=== PATIENT | female | born 2000 | race Caucasian/White ===

== ENCOUNTER 2020-12-31 14:50 | Inpatient (IN) | payer BC, SELFPAY ==
[2020-12-31] VITALS (27 sets, daily range): BP systolic 114–139; BP diastolic 66–85; PULSE 75–123; RESP 16; TEMP 36.6–36.8; O2SAT 77–100; BMI 24.0
[2020-12-31 15:47] LABS: Basophils Percent Auto 0.2 % (0.2-1.2); Eosinophils Absolute Auto 0.1 K/mm3 (0-0.3); Eosinophils Percent Auto 0.6 % (0-4.4); Hematocrit 34.9 % (37.0-47.0); Hemoglobin 11.5 g/dL (12.0-15.0); Immature Granulocyte Absolute 0.09 K/mm3 (0.00-0.031); Immature Granulocyte Percent A 1.1 % (0-0.5); Lymphocytes Absolute Auto 1.77 K/mm3 (0.9-3.2); Lymphocytes Percent Auto 21.5 % (18.3-44.2); Mean Corpuscular Hemoglobin 28.4 pg (26-34); Mean Corpuscular Volume 86.2 fl (80-100); Monocytes Absolute Auto 0.7 K/mm3 (0.1-0.6); Monocytes Percent Auto 8.6 % (2.6-8.5); Neutrophils Absolute Auto 5.6 K/mm3 (1.3-6.7); Platelet Count Result 240 k/mm3 (150-375); Red Blood Count 4.05 M/mm3 (4.2-5.4); Red Cell Distribution Width 13.6 % (11.5-14.5); White Blood Count 8.2 K/mm3 (4.5-10.0)
--- NOTE | 2020-12-31 15:55 | PM.IMHP ---
H&P: HPI History of Present Illness Date/Time: 12/31/20 15:55 20-year-old 1 para 0 whose last menstrual period was unsure with EDC is 01/02/2021 based on 9 week ultrasound presents with spontaneous rupture membranes apparently 24 hours ago. She is positive for ROM Plus today and her cervix is 5-6 cm. She does have type 1 mild von Willebrand's disease and will require DDAVP nasal spray just prior to delivery. She is negative for group B strep Chief Complaint: term in labor Review of Systems Review of Systems: All systems reviewed & are unremarkable except as noted in HPI and below PMFSH Family History Family History Father Hypertension Grandparent Hypertension Mother Hypotension Chronic cough Shortness of breath Social History Social History Substance use: never Spiritual care concerns: No Meds Home Medications and Allergies Home Medications Medication Instructions Recorded Confirmed Type cholecalciferol (vitamin D3) 25 mcg PO DAILY 12/18/20 12/18/20 History [Vitamin D3] prenat.vits,luly,atr-bpeh-rpbes 1 tablet PO DAILY 12/18/20 12/18/20 History [ #2] Allergies Allergy/AdvReac Type Severity Reaction Status Date / Time amoxicillin Allergy Intermediate Swelling Verified 12/18/20 13:36 of the Eye famotidine [From Pepcid] Allergy Intermediate Hives Verified 12/18/20 13:36 gabapentin Allergy Intermediate Confusion Verified 12/18/20 13:36 Exam Const: General: no acute distress Eyes: General: appearance normal, both eyes and all related structures Neck: Neck: supple and no JVD Thyroid: thyroid normal Resp: Effort & Inspection: normal respiratory effort Auscultation: clear to auscultation bilaterally Cardio: Rate: regular rate Rhythm: regular rhythm GI: Inspection: non-distended GI Palp: Yes Soft to palpation, No Tenderness to palpation present (GI) and No Guarding due to palpation present (GI) Auscultation: normal bowel sounds : External Female Exam: normal external appearance Speculum Exam - Vagina: normal appearance of the vagina Speculum Exam - Cervix: normal appearance of the cervix ( cervix 5/100/0. Clear fluid seen. FHTs reassuring) Skin: General skin exam: no rashes or lesions noted Extrem: General: normal to inspection and no edema Psych: Mental Status: mental status grossly normal Affect: normal affect H&P: Results Labs Labs: Short CBC 12/31/20 Range/Units 15:34 WBC 8.2 (4.5-10.0) K/mm3 Hgb 11.5 L (12.0-15.0) g/dL Hct 34.9 L (37.0-47.0) % Plt Count 240 (150-375) k/mm3 Assessment and Plan Additional Plan impression: Term in active labor. Mild type 1 von Willebrand's disease. Plan: Spontaneous vaginal delivery is expected. DDAVP will be administered
[2020-12-31 15:57] LABS: INR 0.9; Prothrombin Time 11.8 Seconds (11.1-14.7)
[2020-12-31 15:58] LABS: Partial Thromboplastin Time 26.4 SECONDS (22.3-36.8)
--- NOTE | 2020-12-31 15:58 | LDADM ---
This patient, Aliza Pizano, was admitted to Labor/Delivery/Recovery 103 on 12/31/20 at 14:50. Plans for labor, pain management and were discussed with patient. Patient/family oriented to hospital policies and general routines including ID bracelet, bed and alarms, visiting hours, pain management, procedures, bathroom and other care routines, personal items, smoking policy, room service/diet and guest tray routines, security routines, and visiting hours. Patient/Family are encouraged to report perceived risks to care and to ask questions if they do not understand what they are told or what they should do. See OBIX for further documentation.
[2020-12-31 16:09] LABS: Fibrinogen 222 mg/dl (215-510)
[2020-12-31] MEDS: OXYTOCIN 30 UNITS/NS 500 ML 30 UNITS/500 ML BAG 6 UNITS IV CONT (16:22)
[2020-12-31] MEDS: LACTATED RINGERS 1,000 ML 125 ML IV CONT (16:48)
--- NOTE | 2020-12-31 18:04 | PM.OBPNLAB ---
Pain Control Date/time seen: 12/31/20 18:04 Pain control: tolerating well Pelvic Exam Dilation (cm): 8 Effacement (%): 100 station: +1 Amniotic membrane status: Leaking Contractions Monitor mode: External Contraction pattern: Regular Contraction intensity: Strong/Firm Status status: Category l
--- NOTE | 2020-12-31 19:28 | P.PCNOB_ITS ---
OB - Delivery Note Procedure Delivery date: 12/31/20 Intrapartal events: None Induction method: none Delivery augmentation: pitocin Delivery monitor: external FHT Route of delivery: Episiotomy description: None Laceration Description: Perineal - 2nd Degree Delivery repair: vicryl Specimen: No Quantitative Blood Loss (ml): 58 Anesthesia type: Local Disposition: floor [place] Baby Date of : 12/31/20 Time of : 19:11 Weeks of gestation at delivery: 39 gender: Male presentation: vertex position: Left Occiput Anterior Placenta delivery description: Spontaneous cord vessel description: 3 Vessels score one minute: 9 score five minutes: 9
[2020-12-31] MEDS: OXYTOCIN 30 UNITS/NS 500 ML 30 UNITS/500 ML BAG 125 UNITS IV CONT (19:47)
[2020-12-31] MEDS: IBUPROFEN 600 MG TABLET PO (20:17)
[2020-12-31] MEDS: WITCH HAZEL 40 PADS 1 PAD TOPICAL (20:18)
[2020-12-31] MEDS: BENZOCAINE 20% AER SPR (*SP) 56 GM CAN 1 SPRAY TOPICAL (20:18)
[2021-01-01 05:09] LABS: Hematocrit 26.4 % (37.0-47.0); Hemoglobin 8.8 g/dL (12.0-15.0)
--- NOTE | 2021-01-01 07:15 | PM.OBPNVD ---
OB - PN: Subj Subjective Date/time seen: 01/01/21 07:15 Patient comments: no complaints and pain well controlled baby status: doing well and nursing well OB - PN: Obj Data Labs CBC & Chem 7: 01/01/21 04:13 Labs: Laboratory Results - last 24 hr 12/31/20 12/31/20 12/31/20 15:33 15:34 15:34 WBC 8.2 RBC 4.05 L Hgb 11.5 L Hct 34.9 L MCV 86.2 MCH 28.4 MCHC 33.0 RDW 13.6 Plt Count 240 MPV 11.0 H Immature Gran % (Auto) 1.1 H Neut % (Auto) 68.0 Lymph % (Auto) 21.5 [place] % (Auto) 8.6 H Eos % (Auto) 0.6 Baso % (Auto) 0.2 Lymph # (Auto) 1.77 [place] # (Auto) 0.7 H Eos # (Auto) 0.1 Baso # (Auto) 0.0 Abs Immat Gran (auto) 0.09 H Absolute Neuts (auto) 5.6 Absolute Nucleated RBC 0.0 Nucleated RBC % 0.0 PT 11.8 INR 0.9 APTT 26.4 Fibrinogen 222 Blood Type O Positive Antibody Screen Negative 01/01/21 04:13 WBC RBC Hgb 8.8 L Hct 26.4 L MCV MCH MCHC RDW Plt Count MPV Immature Gran % (Auto) Neut % (Auto) Lymph % (Auto) [place] % (Auto) Eos % (Auto) Baso % (Auto) Lymph # (Auto) [place] # (Auto) Eos # (Auto) Baso # (Auto) Abs Immat Gran (auto) Absolute Neuts (auto) Absolute Nucleated RBC Nucleated RBC % PT INR APTT Fibrinogen Blood Type Antibody Screen OB - PN A/P Plan day: 1 Plan: routine care Time Spent With Patient Time: Total time spent is greater than 50% in coordination of care (as documented) at patient's floor/unit and/or counseling patient: Time with patient: less than 15 minutes Review of Systems Review of Systems: All systems reviewed & are unremarkable except as noted in HPI and below Exam Const: General: no acute distress Eyes: General: appearance normal, both eyes and all related structures Neck: Neck: supple and no JVD Thyroid: thyroid normal Resp: Effort & Inspection: normal respiratory effort Auscultation: clear to auscultation bilaterally Cardio: Rate: regular rate Rhythm: regular rhythm GI: Inspection: non-distended GI Palp: Yes Soft to palpation, No Tenderness to palpation present (GI) and No Guarding due to palpation present (GI) Auscultation: normal bowel sounds : General: Yes bladder normal to palpation External Female Exam: normal external appearance Speculum Exam - Vagina: normal vaginal discharge and No vaginal bleeding Speculum Exam - Cervix: nontender Bimanual exam- vagina & uterus: bladder normal to palpation and No Cervical tenderness present OB/external & speculum: No vaginal bleeding Skin: General skin exam: no rashes or lesions noted Extrem: General: normal to inspection and no edema Psych: Mental Status: mental status grossly normal Affect: normal affect
[2021-01-01] MEDS: POLYSACCHARIDE IRON COMPLEX 150 MG CAPSULE PO ×2 (07:59→20:25)
[2021-01-01] MEDS: IBUPROFEN 600 MG TABLET PO (07:59)
[2021-01-01] MEDS: DOCUSATE SODIUM 100 MG CAPSULE PO ×2 (07:59→20:25)
[2021-01-01 08:05] LABS: Rapid Plasma Reagin Non-Reactive (NonReactive)
[2021-01-01 08:15] VITALS: BP 110/64; PULSE 82; RESP 18; TEMP 37.6; O2SAT 98
[2021-01-01] MEDS: MULTIVIT/MIN/PREN/FOL AC/IRON TABLET 1 TAB PO (08:51)
[2021-01-01 12:03] VITALS: BP 99/54; PULSE 74; RESP 16; TEMP 36.9; O2SAT 99
--- NOTE | 2021-01-01 13:40 | PC.NURSE ---
Mother called out for assist with feeding, reporting will not latch to right breast. Right nipple has less profile than left. Mother states infant is sleepy and not staying on for more than a few minutes before having to relatch. Infant does not appear to have a tight frenulum and flange both lips, keeps tongue rolled up. Skin is intact on both nipples, redness and no bruising noted. Reviewed infant feeding cues, frequencies, duration of feedings, feeding elimination flow sheet, and signs of adequate intake. Demonstrated stimulation techniques to wake infant for feeding. Assisted with to breast. Reviewed positioning/alignment in cross cradle, holding breast in ?U? hold and guided asymmetrical latch on. Discussed rational for each. Infant unable to latch correctly. keeps tongue up and nipple is under tongue. Infant will make weak attempts with suckling and is on and off freq within first minutes of feeding. Offered and explained the nipple shield. Discussed nipple shield precautions and possible complications. Instructions given on application and cleaning of shield. Patient able to return demonstration on proper application of shield. Discussed the need to initiate pumping if infant continues to nurse with the shield. Patient verbalizes understanding. With shield in place nursed eagerly for bursts followed with long pausing. Suggested mother stimulate while feeding to increase stimulate, increase intake and to assist with maintaining deep latch. Infant responded to stimulation with increased bursts of nursing. Reviewed signs of a correct latch, effective nursing and suck swallow ratio. Infant would slip to shallow latch, mother reports tenderness. Demonstrated how to adjust latch more deeply while feeding. Mother reports she can feel change in latch and has no tenderness. Nipple care reviewed of lanolin after feedings, warm compresses as needed. Advised mother to continue to stimulate during entire feeding to keep infant awake and nursing. Reviewed the difference of effective vs ineffective nursing, advised infant has short bursts of nursing. If is not suckling milk is not transferring. Observed 30 minutes of feeding approximately 10-015 minutes of sucking noted, with LC stimulating and keeping infant awake. Report to primary RN Instructed mother to call out for RN assistance if she is unable to latch for feeding or she has discomfort with nursing.
[2021-01-01 17:10] VITALS: BP 106/61; PULSE 77; RESP 16; TEMP 36.7
[2021-01-01 20:25] VITALS: BP 113/75; PULSE 116; RESP 16; TEMP 36.7
--- NOTE | 2021-01-02 06:57 | PM.DS ---
DS: Admitting Diagnosis Admitting Diagnosis Term in active labor with von Willebrand's disease DS: Summary Hospital Course Hospital Course: the patient was admitted in active labor. She underwent spontaneous vaginal delivery which was due to her van Willebrand's disease, she was given dose of DDAVP. Her hospital course was unremarkable. She remained afebrile. She was up, voiding without difficulty, ambulating, breast-feeding, and generally without complaints Time Spent with Patient Time attestation: Total time spent providing and/or coordinating discharge services: Exam Const: General: no acute distress Eyes: General: appearance normal, both eyes and all related structures Neck: Neck: supple and no JVD Thyroid: thyroid normal Resp: Effort & Inspection: normal respiratory effort Auscultation: clear to auscultation bilaterally Cardio: Rate: regular rate Rhythm: regular rhythm GI: Inspection: non-distended GI Palp: Yes Soft to palpation, No Tenderness to palpation present (GI) and No Guarding due to palpation present (GI) Auscultation: normal bowel sounds : General: Yes bladder normal to palpation External Female Exam: normal external appearance Speculum Exam - Vagina: normal vaginal discharge and No vaginal bleeding Speculum Exam - Cervix: nontender Bimanual exam- vagina & uterus: bladder normal to palpation and No Cervical tenderness present OB/external & speculum: No vaginal bleeding Skin: General skin exam: no rashes or lesions noted Extrem: General: normal to inspection and no edema Psych: Mental Status: mental status grossly normal Affect: normal affect DS: Data Data Completed and Pending Labs on day of discharge: Labs from last 24 hours 12/31/20 15:33 RPR Non-reactive Discharge Plan Discharge Attending physician on discharge: Juan Carlos Cedeno Discharging Clinician: Juan Carlos Cedeno Patient Disposition: Home, Self-Care Activity: may shower, no straining and pelvic rest Diet: heart healthy Wound Care Instructions: follow printed instructions Patient Instructions: Antibiotic Form Stand Alone Forms: General Discharge Information Follow-up/Referrals: Juan Carlos Cedeno MD [Physician] - Discharge Medications: Continued #2 Tablet 1 tablet PO DAILY RF: 0 cholecalciferol (vitamin D3) [Vitamin D3] 25 mcg (1,000 unit) Tablet 25 mcg PO DAILY RF: 0 Date of admission: 12/31/20 14:50 Primary Care Provider: Ole,Juan Carlos P. Admitting Provider: Juan Carlos Cedeno Attending physician on admission: Juan Carlos Cedeno Condition: Stable
--- NOTE | 2021-01-02 06:59 | PM.OBPNVD ---
OB - PN: Subj Subjective Date/time seen: 01/02/21 06:59 Patient comments: no complaints and pain well controlled baby status: doing well and nursing well OB - PN: Obj Data Labs CBC & Chem 7: 01/01/21 04:13 Labs: Laboratory Results - last 24 hr 12/31/20 15:33 RPR Non-reactive OB - PN A/P Time Spent With Patient Time: Total time spent is greater than 50% in coordination of care (as documented) at patient's floor/unit and/or counseling patient: Review of Systems Review of Systems: All systems reviewed & are unremarkable except as noted in HPI and below Exam Const: General: no acute distress Eyes: General: appearance normal, both eyes and all related structures Neck: Neck: supple and no JVD Thyroid: thyroid normal Resp: Effort & Inspection: normal respiratory effort Auscultation: clear to auscultation bilaterally Cardio: Rate: regular rate Rhythm: regular rhythm GI: Inspection: non-distended GI Palp: Yes Soft to palpation, No Tenderness to palpation present (GI) and No Guarding due to palpation present (GI) Auscultation: normal bowel sounds : General: Yes bladder normal to palpation External Female Exam: normal external appearance Speculum Exam - Vagina: normal vaginal discharge and No vaginal bleeding Speculum Exam - Cervix: nontender Bimanual exam- vagina & uterus: bladder normal to palpation and No Cervical tenderness present OB/external & speculum: No vaginal bleeding Skin: General skin exam: no rashes or lesions noted Extrem: General: normal to inspection and no edema Psych: Mental Status: mental status grossly normal Affect: normal affect
[2021-01-02 07:45] VITALS: BP 113/75; PULSE 64; RESP 16; TEMP 36.6; O2SAT 99
[2021-01-02] MEDS: MULTIVIT/MIN/PREN/FOL AC/IRON TABLET 1 TAB PO (11:07)
[2021-01-02] MEDS: DOCUSATE SODIUM 100 MG CAPSULE PO (11:07)
[2021-01-02] MEDS: POLYSACCHARIDE IRON COMPLEX 150 MG CAPSULE PO (11:07)
[2021-01-02] MEDS: TETANUS,DIPHTHERIA,AC PERTUSSIS ADULT (0.5 ML) BOOSTRIX IM (11:08)
--- NOTE | 2021-01-02 12:05 | PC.NURSE ---
Attempt to consult pt in am, mother is needing to rest. Requested mother call out at 1115 feeding, mother independently fed reporting pain and difficulties with waking and keeping infant awake during feeding. Suggested parents wait for discharge after next feeding at 1415.
--- NOTE | 2021-01-02 14:15 | PC.NURSE ---
Mother called out for assist with feeding. continues to keep tongue up and not drop. Both nipples are red and bruising noted. Mother states she has not been using nipple shield, she does not like it and feels she has more discomfort with than without. Reviewed infant feeding cues, frequencies, duration of feedings, feeding elimination flow sheet, and signs of adequate intake. Demonstrated stimulation techniques to wake for feeding. Assisted with to breast. Reviewed positioning/alignment in cross cradle, holding breast in ?U? hold and guided asymmetrical latch on. Discussed rational for each. 10 minutes of attempt, is unable to latch correctly, he does not drop tongue to allow correct latch. Worked with to drop tongue for latch, mother continues to report discomfort. would suckle with dimpling noted. Attempted with nipple shield, mother was able to get shield on top of tongue. Mother continues to report tenderness, less than without shield. nursed eagerly, with steady draws for 1-2 minutes then would pause and fall asleep. Parents report this is typical of making eager attempts for a few minutes then falling asleep. Suggested mother stimulate while feeding to keep awake and nursing. Infant does not respond to stimulation, he continues to sleep. Small amounts of formula to entice . responded with increased nursing. Reviewed signs of a correct latch, effective nursing and suck swallow ratio. would slip to shallow latch, mother reports tenderness. Demonstrated how to adjust latch more deeply while feeding. Mother reports she can feel change in latch and has less tenderness. Nipple care reviewed of lanolin after feedings, warm compresses as needed. Feeding plan will be to put to breast for up to 15 minutes, infant will then be supplemented 20 mls EBM/formula, increasing as infant desires. Mother will pump for 15 minutes. Discussed as infant increases supplementation he may not want to feed for 4 hours, mother will continue to pump after feeding attempts increasing pumping to 20 minutes if pumping every 4 hours. Mother is feeding as required and waking to feed if needed, stressed to wake for 4 hours if supplementing. is currently meeting outcomes for weight, output, jaundice and feeding frequencies. Mother states she feels confident to with feeding plan of supplementing and pumping after each feeding/attempt at home. Reviewed transition to breast milk, signs of adequate intake, and engorgement/relief. Instructed to call ICP if intake/output less than required. Reviewed regular medications mother is taking. Information provided per Gloria. Reviewed community resources on the [facility] website and in the Mom/Baby guide. Information on outpatient services provided. Mother has no further questions at this time.
[2021-01-05 12:10] VITALS: BP 104/68; PULSE 82; RESP 20; TEMP 36.8; O2SAT 100
== END 2021-01-02 16:08 | disposition home or self-care (01) | DRG 806 ==
LOC: ANHLDR 15:18 → ANHOB2 22:09
PROVIDERS: Admitting Provider Obstetrics & Gynecology; PCP Family Medicine; Visit Provider Obstetrics & Gynecology
DX: O99.12 Other diseases of the blood and blood-forming organs and certain disorders involving the immune mechanism complicating childbirth (principal); D68.0 Von Willebrand disease; Z37.0 Single live birth; Z3A.39 39 weeks gestation of pregnancy; O70.1 Second degree perineal laceration during delivery
CPT/HCPCS: 36415; 84112; 85014; 85018; 85025; 85384; 85610; 85730; 86592; 86850; 86900; 86901; 90715; A9270; J0690; J2590; J2795; J7120

== ENCOUNTER 2021-01-11 15:19 | Outpatient (RCR) | payer BC, SELFPAY ==
--- NOTE | 2021-01-11 16:00 | PC.NURSE ---
[id number] OUT 1100 HISTORY: Pt. delivered at [facility] at 39 weeks. had no complications after delivery. Mother had complications after delivery of a large blood loss. Infant is now 12 days old. Infant appears to be well cared for. Infant has been seen by ICP as scheduled. Infant last seen by ICP on 01/10/2021. Mother reports: Currently at 9 wets per day and 6 yellow seedy stools per day. Mother went home on a feeding plan due to ineffective nursing she was advised to supplement after all feedings. Mother was attempting to breast, infant would not maintain latch. Mother was given and instructed on use of a nipple shield to assist with latching while in the hospital. Mother did not like the nipple shield and discontinued use. was to be supplemented EBM/formula and then pump to replace stimulation. Mother was not supplementing amount advised in feeding plan. At follow up had not gained any weight and not maintaining effective latching. Mother was again assisted with nipple shield to assist with deep latch. Mother reports she has been putting infant to breast each feeding with the shield for up to 40 minutes, she will then pump up to 3 oz per session. Mother does not give EBM after each feeding, reporting is satisfied after . and had lost more weight by 1st ICP appointment, and returned for 2nd weight check and had gained 1 oz in a week. Mother denies discomfort with feeding and reports is satisfied after feeding. Pt's mother is with her for appointment, stating she will supplement if she feels infant needs it. Mother reports she feels is sleepy at times and is fussy and difficult to latch. Mother wishes: Resolve feeding issues and to gain weight. OBSERVATION: weight: 7#11 Discharge weight: Last Weight: 7#3 at 1 week and 7#4 at second ICP apt. Pre feeding weight: 3469 Post feeding weight: 3520 Tongue is able to move freely past gum ridge, both lips flange easily. Mother has everted nipples with skin intact no redness, blisters, scabbing or abrasions noted. Observed mother putting to breast using nipple shield. Assisted mother will pillows and a roll for her wrist to keep aligned for correct latch. Infant will eagerly latch. Mother allows infant to latch to tip of shield, shield can be seen sliding inn and out while nursing. Mother denies discomfort with feeding. Reviewed positioning/alignment in cross cradle, holding breast in U hold and guided asymmetrical latch on. Infant was able to latch correctly/deeply using nipple shield. Large amount of shield rim under flanged lips. Infant nursed eagerly, with steady draws and frequent swallowing noted. Reviewed signs of a correct latch, effective nursing and suck swallow ratio. was able to maintain latch without discomfort to mother. Mother reports has not been latching as deeply and has not been maintaining latch, he has been on and off several times during the feeding. Mother estimates that half of the 40 minutes at breast, was waking infant or returning infant to breast for latch. Demonstrated to stimulate infant to keep awake and nursing effectively for increased intake, increased stimulation and assist with maintaining deep latch. Advised infant has be latched deeply with flanged lips and not on just tip of shield. Reviewed infant may be tired and not satisfied when feeding is complete. Pre/Post weight completed, eagerly bottle fed 2 oz of expressed milk after weight check. Pt.'s mother voices concerns with volume nippled, she feels infant will not want to return to breast if bottle fed large amounts. Advised infant need the additional calories and fluid at this time. Once he is more awake and able to empty breast with nursing supplement may be decreased b
== END 2021-02-20 13:28 | disposition home or self-care (01) ==
LOC: ANHOBOP 15:19
PROVIDERS: PCP Family Medicine; Visit Provider Obstetrics & Gynecology
DX: Z39.1 Encounter for care and examination of lactating mother (principal)
CPT/HCPCS: 99212; G0463